=== PATIENT | male | born 1955 | race Caucasian/White ===

== ENCOUNTER 2020-04-14 10:51 | Outpatient (CLI) | payer MEDICARE, SELFPAY ==
--- NOTE | 2020-04-14 | EST_ITS ---
Patient Info Name: Mauri Tong [place] Age: 65 years : 1955 Gender: Male Ht: 69 in Wt: 190 lbs BSA: 2.07 m2 Exam Date: 04/14/2020 11:17 AM Exam Location: [facility] Stress Patient Status: Outpatient Admit Date: 04/14/2020 Staff Ordering Physician: Marin Caballero MD Attending Provider: Marin Caballero MD Exercise Technologist: Dusty Menendez RDCS, RT Exercise Physician: David Puente DO Exam Type: CA stress test treadmill Study Info An exercise stress test was performed. Summary 1. 1. Negative Darius exercise stress test for ischemic ST changes by ECG criteria. 2. 2. Reduced functional capacity, achieving 7 METs of workload. 3. 3. Hypertensive response to exercise. 4. 4. Appropriate HR response to exercise. 5. 5. Appropriate HR recovery at 1 minute post exercise. 6. 6. No imaging with stress testing. 7. 7. Patient informed of the above results. Protocol: Darius Stress ECG Details Stage: REST Duration (min): 0 min : 55 sec Speed (mph): 0.0 Grade (%): 0 HR (bpm): 63 SBP (mmHg): 107 DBP (mmHg): 80 METS: --- Stage: REST Duration (min): 3 min : 13 sec Speed (mph): 0.0 Grade (%): 0 HR (bpm): 61 SBP (mmHg): 107 DBP (mmHg): 80 METS: --- Stage: STAGE 1 Duration (min): 1 min : 0 sec Speed (mph): 1.7 Grade (%): 10 HR (bpm): 98 SBP (mmHg): 107 DBP (mmHg): 80 METS: --- Stage: STAGE 1 Duration (min): 2 min : 0 sec Speed (mph): 1.7 Grade (%): 10 HR (bpm): 119 SBP (mmHg): 107 DBP (mmHg): 80 METS: --- Stage: STAGE 1 Duration (min): 3 min : 0 sec Speed (mph): 1.7 Grade (%): 10 HR (bpm): 129 SBP (mmHg): 198 DBP (mmHg): 93 METS: --- Stage: STAGE 2 Duration (min): 1 min : 0 sec Speed (mph): 2.5 Grade (%): 12 HR (bpm): 134 SBP (mmHg): 198 DBP (mmHg): 93 METS: --- Stage: STAGE 2 Duration (min): 1 min : 59 sec Speed (mph): 2.5 Grade (%): 12 HR (bpm): 141 SBP (mmHg): 215 DBP (mmHg): 90 METS: --- Stage: RECOVERY Duration (min): 1 min : 0 sec Speed (mph): 0.0 Grade (%): 0 HR (bpm): 115 SBP (mmHg): 215 DBP (mmHg): 90 METS: --- Stage: RECOVERY Duration (min): 2 min : 0 sec Speed (mph): 0.0 Grade (%): 0 HR (bpm): 90 SBP (mmHg): 215 DBP (mmHg): 90 METS: --- Stage: RECOVERY Duration (min): 3 min : 0 sec Speed (mph): 0.0 Grade (%): 0 HR (bpm): 83 SBP (mmHg): 186 DBP (mmHg): 91 METS: --- Stage: RECOVERY Duration (min): 3 min : 25 sec Speed (mph): 0.0 Grade (%): 0 HR (bpm): 82 SBP (mmHg): 186 DBP (mmHg): 91 METS: --- Rest HR: 61 bpm Peak HR: 141 bpm Rest Sys BP: 107 mmHg Peak Sys BP: 215 mmHg Max Pred HR: 153 bpm % Max Pred HR: 92 % Target HR: 130 bpm Max RPP: 30,315 bpm*mmHg Angulo Score: -3 BP Response: Patient exhibited a hypertensive response with stress Termination Reason: Reached target hea
== END 2020-04-14 10:52 | disposition home or self-care (01) ==
PROVIDERS: PCP Family Medicine; Visit Provider Family Medicine
DX: R07.9 Chest pain, unspecified (principal)
CPT/HCPCS: 93017

== ENCOUNTER 2020-04-26 09:00 | Outpatient (CLI) | payer MEDICARE, SELFPAY ==
--- NOTE | 2020-04-26 09:10 | EST_ITS ---
Patient Info Name: Mauri Tong [place] Age: 65 years : 1955 Gender: Male Ht: 69 in Wt: 193 lbs BSA: 2.08 m2 Technical Quality: Good Exam Date: 04/26/2020 9:40 AM Exam Location: [facility] Pulmonary Patient Status: Outpatient Admit Date: 04/26/2020 Staff Ordering Physician: Marin Caballero MD Hogshead Cooper: Roma Bo RDCS Attending Provider: SUNITHA SHAW DO Referring Physician: Federico SON; Exercise Technologist: Vannessa Duque RDCS Exercise Physician: Sunitha Shaw DO Exam Type: CA stress echo Study Info Indications R07.9 - Chest pain, unspecified Two-dimensional, color flow imaging, and Doppler interrogation is performed during the stress echocardiogram. Summary 1. 1. Negative Darius exercise stress test for ischemic ST changes by ECG criteria. 2. 2. Good functional capacity, achieving 8.9 METs of workload. 3. 3. Baseline hypertension. 4. 4. Appropriate HR response to exercise. 5. 5. Appropriate HR recovery at 1 minute post exercise. 6. 6. Negative stress echocardiogram for ischemia by wall motion analysis. 7. 7. Patient informed of the above results. Stress Echo Findings Left Ventricle Appropriate increase in LV endocardial thickening with systole. Appropriate augmentation of contractility with systole. No wall motion abnormality. Left Ventricle Normal LV systolic function, no wall motion abnormality. Protocol: Darius Stress ECG Details Stage: REST Duration (min): 9 min : 9 sec Speed (mph): 0.0 Grade (%): 0 HR (bpm): 59 SBP (mmHg): 159 DBP (mmHg): 88 METS: --- Stage: REST Duration (min): 16 min : 54 sec Speed (mph): 0.0 Grade (%): 0 HR (bpm): 64 SBP (mmHg): 159 DBP (mmHg): 88 METS: --- Stage: STAGE 1 Duration (min): 1 min : 0 sec Speed (mph): 1.7 Grade (%): 10 HR (bpm): 99 SBP (mmHg): 159 DBP (mmHg): 88 METS: --- Stage: STAGE 1 Duration (min): 2 min : 0 sec Speed (mph): 1.7 Grade (%): 10 HR (bpm): 111 SBP (mmHg): 159 DBP (mmHg): 88 METS: --- Stage: STAGE 1 Duration (min): 3 min : 0 sec Speed (mph): 1.7 Grade (%): 10 HR (bpm): 112 SBP (mmHg): 159 DBP (mmHg): 88 METS: --- Stage: STAGE 2 Duration (min): 1 min : 0 sec Speed (mph): 2.5 Grade (%): 12 HR (bpm): 119 SBP (mmHg): 159 DBP (mmHg): 88 METS: --- Stage: STAGE 2 Duration (min): 2 min : 0 sec Speed (mph): 2.5 Grade (%): 12 HR (bpm): 126 SBP (mmHg): 192 DBP (mmHg): 105 METS: --- Stage: STAGE 2 Duration (min): 3 min : 0 sec Speed (mph): 2.5 Grade (%): 12 HR (bpm): 134 SBP (mmHg): 192 DBP (mmHg): 105 METS: --- Stage: STAGE 3 Duration (min): 1 min : 0 sec Speed (mph): 3.4 Grade (%): 14 HR (bpm): 142 SBP (mmHg): 201 DBP (mmHg): 103 METS: --- Stage: STAGE 3 Duration (min): 1 min : 1 sec Speed (mph): 0.0 Grade (%): 0 HR (bpm): 142 SBP (mmHg): 201 DBP (mmHg): 103 METS: ---
== END 2020-04-26 09:01 | disposition home or self-care (01) ==
LOC: ANHCARD 09:01
PROVIDERS: PCP Family Medicine; Visit Provider Family Medicine
DX: R07.9 Chest pain, unspecified (principal)
CPT/HCPCS: 93351

== ENCOUNTER 2021-06-18 13:06 | Emergency (ER) | payer MEDICARE, SELFPAY ==
[2021-06-18 13:16] VITALS: BP 150/111; PULSE 61; RESP 18; TEMP 36.6; O2SAT 100
--- NOTE | 2021-06-18 13:32 | ED.BACK ---
HPI - Back Pain/Injury General Chief Complaint: Back Pain/Injury Stated Complaint: Lower Back Pain Time Seen by Provider: 06/18/21 13:32 Source: patient and RN notes reviewed Mode of arrival: ambulatory Limitations: no limitations History of Present Illness HPI Narrative: 66-year-old male presents with concern for bilateral low back pain without injury. Reports symptoms started 3 days ago. Reports he has taken some leftover Flexeril which helped improve the pain. Reports he can find a position of comfort, the process of standing exacerbates the pain. Reports sitting for longer periods of time exacerbate the pain. He reports a feeling of the muscle cramping. He denies perianal anesthesia, loss of bowel or bladder function, fever, abdominal pain, weakness in any extremity. Reports he takes Mobic for his knee that has not been improving his back pain. MD elicited complaint: back pain Related Data Allergies Allergy/AdvReac Type Severity Reaction Status Date / Time No Known Allergies Allergy Verified 06/18/21 13:22 Review of Systems Review of Systems: CONSTITUTIONAL: Denies malaise, chills, sweats, or fever. CARDIOVASCULAR: Denies chest pain, palpitations, or edema. RESPIRATORY: Denies cough or dyspnea. GASTROINTESTINAL: Denies abdominal pain, nausea, vomiting, diarrhea, SKIN: Denies bruising, redness MUSCULOSKELETAL: Reports bilateral low back pain. Denies joint pain myalgia. NEUROLOGIC: Denies numbness, weakness, or headache. All systems reviewed & are unremarkable except as noted in HPI and below PMFSH Family History Family History Mother Diabetes mellitus Father Family history of cardiovascular disease Grandparent Family history of malignant neoplasm of cervix Family history of lung cancer Other Carcinoma of colon No family history of malignant neoplasm Social History Social History Smoking status: Never smoker Alcohol intake: current Comments At time of signature, agree with nursing past medical, surgical, social and family history. There is no relevant family history pertinent to the presenting complaint Exam Narrative: GENERAL: Well-appearing, well-nourished, and in no acute distress. HEAD: Normocephalic, atraumatic. EYES: PERRLA and EOMI. NECK: Supple. No lymphadenopathy. CHEST: Clear to auscultation. No respiratory distress. HEART: Regular rate and rhythm. Distal pulses palpable and equal, cap refill <3 seconds ABDOMEN: Soft, nontender, nondistended, normal active bowel sounds, no palpable or pulsatile masses. No CVA tenderness MUSCULOSKELETAL: Normal range of motion and strength in all extremities; 5/5 strength with hip flexion and extension, dorsiflexion and extension, knee flexion and extension, plantar flexion and extension. Normal sensation in dermatomal distributions with sensitivity to light touch and pain. No midline back tenderness to palpation. No paraspinal tenderness. SKIN: Warm, dry, no rash. NEURO: No focal deficits. Alert and oriented x3. PSYCH: Normal mood and affect Course Course Emergency Course: Patient is aware of diagnosis, understands and agrees to treatment plan. Anticipatory guidance given. Patient agrees to follow-up as directed and is aware of reasons to seek care at the emergency department. Portions of this record may have been created with voice recognition software Vital Signs Vital signs: Vital Signs Temperature 97.8 F 06/18/21 13:16 Pulse Rate 61 06/18/21 13:16 Respiratory Rate 18 06/18/21 13:16 Blood Pressure 150/111 H 06/18/21 13:16 Pulse Oximetry 100 06/18/21 13:16 Temperature 97.8 F 06/18/21 13:16 Pulse Rate 61 06/18/21 13:16 Respiratory Rate 18 06/18/21 13:16 Blood Pressure 150/111 H 06/18/21 13:16 Pulse Oximetry 100 06/18/21 13:16 Reviewed. Pt has been instructed to follow up with his primary care provi
[2021-06-18 13:45] VITALS: BP 147/93; PULSE 62; RESP 16; O2SAT 100
== END 2021-06-18 13:45 | disposition home or self-care (01) ==
PROVIDERS: Emergency Provider Nurse Practitioner; PCP Family Medicine
DX: M54.5 Low back pain (principal)
CPT/HCPCS: 99213; G0463